=== PATIENT | male | born 1955 | race Caucasian/White ===

== ENCOUNTER 2023-05-12 10:22 | Emergency (ER) | payer OTHER, MEDICARE, BC ==
[~2023-05-12] VITALS: Ht 172.7 cm; Wt 83.2 kg
[~2023-05-12 10:22] MED LIST: ASPI-1071 PO; ATOR20TA66 PO; CLOP75TA34 PO; LAMO150T6 PO; METO-395 PO; PANT40TA54 PO; TERB250T89 PO; ZONI100C87 PO
[2023-05-12 10:27] VITALS: TEMP 98.3
[2023-05-12] MEDS ORDERED: ondansetron/PF 4mg/2ml inj IV ONE (10:40)
[2023-05-12] MEDS ORDERED: morphine 4 MG/ML inj SYRINge IV ONE (10:40)
[2023-05-12] MEDS ORDERED: normal saline 1000ml 1,000 ML IV ONE (10:40)
[2023-05-12 11:40] VITALS: BP 128/67; PULSE 52; RESP 13; O2SAT 98
[2023-05-12] MEDS ORDERED: HYDR-3965 PO (11:48)
== END 2023-05-12 12:32 | disposition home or self-care (01) ==
LOC: ER 10:22
DX: S20.212A Contusion of left front wall of thorax, initial encounter (principal); J45.909 Unspecified asthma, uncomplicated; Z79.82 Long term (current) use of aspirin; Z79.899 Other long term (current) drug therapy; W19.XXXA Unspecified fall, initial encounter; Y93.89 Activity, other specified; Y92.89 Other specified places as the place of occurrence of the external cause; Y99.8 Other external cause status
CPT/HCPCS: 71250; 96361; 96374; 96375; 99285; J2270; J2405; J7030

== ENCOUNTER 2024-05-11 19:35 | Observation (INO) | payer MEDICARE, BC ==
[~2024-05-11] VITALS: Ht 172.7 cm; Wt 90.5 kg
[2024-05-11 19:58] LABS: BASOPHILS # (AUTO) 0.1 X10'3 (0-0.2); EOSINOPHILS # (AUTO) 0.4 X10'3 (0-0.9); EOSINOPHILS % (AUTO) 4.6 % (0-6); HEMATOCRIT 40.1 % (42.0-52.0); HEMOGLOBIN 13.6 g/dl (14.0-17.9); LYMPHOCYTES # (AUTO) 2.4 X10'3 (1.1-4.8); LYMPHOCYTES % (AUTO) 30.4 % (21-51); MEAN CORPUSCULAR HEMOGLOBIN 32.3 PG (27.0-31.0); MEAN CORPUSCULAR HGB CONC 33.8 g/dL (33.0-36.5); MEAN CORPUSCULAR VOLUME 95.5 FL (78-98); MEAN PLATELET VOLUME 8.2 FL (7.4-10.4); MONOCYTES # (AUTO) 0.8 X10'3 (0-0.9); MONOCYTES % (AUTO) 10.2 % (2-12); NEUTROPHILS # (AUTO) 4.3 X10'3 (1.8-7.7); NEUTROPHILS % (AUTO) 53.8 % (42-75); PLATELET COUNT 197 X10'3 (140-440); RED CELL DISTRIBUTION WIDTH 13.4 % (11.5-14.5)
[2024-05-11 20:24] LABS: ALBUMIN 3.8 G/DL (3.4-5.0); ANION GAP 13 (8-16); BLOOD UREA NITROGEN 13 MG/DL (7-18); CALCIUM 8.9 MG/DL (8.5-10.1); CHLORIDE 109 MMOL/L (99-107); CREATININE 1.08 MG/DL (0.60-1.10); GLUCOSE 80 MG/DL (70-104); PRO BRAIN NATRIURETIC PEPTIDE 264 PG/ML (0-125); SODIUM 144 MMOL/L (135-145); eCRCL 65 ML/MIN; eGFR 68 ML/MIN
[2024-05-11 20:30] LABS: POTASSIUM 2.9 MMOL/L (3.5-5.1)
[2024-05-11 20:52] LABS: APTT 29 SECONDS (22-32); PROTHROMBIN TIME 10.7 SECONDS (9.0-12.0)
[2024-05-11 21:00] LABS: ETHANOL 35 MG/DL (<10); MAGNESIUM 2.6 MG/DL (1.5-2.4)
[2024-05-11 21:05] LABS: URINE AMPHETAMINE SCREEN NEGATIVE (Neg); URINE BARBITUATE SCREEN NEGATIVE (Neg); URINE BENZODIAZEPINES SCREEN NEGATIVE (Neg); URINE CANNABINOID SCREEN NEGATIVE (Neg); URINE COCAINE SCREEN NEGATIVE (Neg); URINE METHADONE SCREEN NEGATIVE (Neg); URINE OPIATE SCREEN NEGATIVE (Neg); URINE PHENCYCLIDINE SCREEN NEGATIVE (Neg)
[2024-05-11] MEDS: normal saline 1000ml 1,000 ML IV SCH (23:24)
[2024-05-11] MEDS: potassium Cl 20 mEq SR tablet PO ONE (23:24)
[2024-05-11] MEDS: potassium Cl 40MEQ/1/2NS 520ml 520 ML IV ONE (23:24)
[2024-05-11] MEDS ORDERED: METO-539 PO (23:56)
[2024-05-11] MEDS ORDERED: ATOR40TA PO (23:56)
[2024-05-11] MEDS ORDERED: ASPI-1265 PO (23:56)
[2024-05-12] VITALS (11 sets, daily range): BP systolic 137–159; BP diastolic 70–82; PULSE 50–86; RESP 14–19; TEMP 98–98.4; O2SAT 96–98
[2024-05-12] MEDS ORDERED: magnesium sulf-water 2g/50mL 50 ML IV PRN
[2024-05-12] MEDS ORDERED: magnesium Cl slow-release 64mg tablet PO PRN
[2024-05-12] MEDS ORDERED: PERFLUTREN PROTEIN-A MICROSPHR (Optison) 0.22 MG/ML 3ML VIAL IV PRN
[2024-05-12] MEDS ORDERED: potassium Cl 20 mEq SR tablet PO PRN ×2
[2024-05-12] MEDS ORDERED: ondansetron/PF 4mg/2ml inj IV PRN
[2024-05-12] MEDS ORDERED: magnesium sulf-water 4G/100mL 100 ML IV PRN
[2024-05-12] MEDS ORDERED: mag hydrox/Alum hydrox/simeth 30ml oral suspension PO PRN
[2024-05-12] MEDS ORDERED: magnesium hydroxide 30ml (MOM) UD suspension PO PRN
[2024-05-12] MEDS ORDERED: acetaminophen 325mg tablet PO PRN
[2024-05-12] MEDS ORDERED: metoprolol tartrate 1mg/ml inj IV PRN (00:35)
[2024-05-12] MEDS ORDERED: nitroGLYCERIN 0.4mg SUBLingual tab SL PRN (00:35)
[2024-05-12] MEDS: enoxaparin 30mg/0.3ml syringe SQ SCH (03:41)
[2024-05-12] MEDS: enoxaparin 60mg/0.6ml syringe SQ SCH (03:41)
[2024-05-12] MEDS: potassium Cl 40MEQ/1/2NS 520ml 520 ML IV PRN (05:55)
[2024-05-12 07:04] LABS: BASOPHILS # (AUTO) 0.1 X10'3 (0-0.2); BASOPHILS % (AUTO) 0.8 % (0-1); EOSINOPHILS # (AUTO) 0.4 X10'3 (0-0.9); EOSINOPHILS % (AUTO) 5.9 % (0-6); HEMATOCRIT 38.6 % (42.0-52.0); HEMOGLOBIN 13.3 g/dl (14.0-17.9); LYMPHOCYTES # (AUTO) 1.6 X10'3 (1.1-4.8); LYMPHOCYTES % (AUTO) 23.4 % (21-51); MEAN CORPUSCULAR HEMOGLOBIN 32.9 PG (27.0-31.0); MEAN CORPUSCULAR HGB CONC 34.4 g/dL (33.0-36.5); MEAN CORPUSCULAR VOLUME 95.6 FL (78-98); MEAN PLATELET VOLUME 8.4 FL (7.4-10.4); MONOCYTES # (AUTO) 0.5 X10'3 (0-0.9); MONOCYTES % (AUTO) 7.6 % (2-12); NEUTROPHILS # (AUTO) 4.3 X10'3 (1.8-7.7); NEUTROPHILS % (AUTO) 62.3 % (42-75); PLATELET COUNT 183 X10'3 (140-440); RED BLOOD COUNT 4.04 X10'6 (4.70-6.10); RED CELL DISTRIBUTION WIDTH 13.8 % (11.5-14.5); WHITE BLOOD COUNT 6.9 X10'3 (4.5-11.0)
[2024-05-12 07:31] LABS: ALANINE AMINOTRANSFERASE 26 U/L (12-78); ALBUMIN 3.4 G/DL (3.4-5.0); ALBUMIN/GLOBULIN RATIO 0.9 (1.1-1.5); ALKALINE PHOSPHATASE 117 IU/L (46-116); ANION GAP 6 (8-16); ASPARTATE AMINO TRANSFERASE 17 U/L (10-37); BILIRUBIN,TOTAL 0.3 MG/DL (0.1-1.0); BLOOD UREA NITROGEN 11 MG/DL (7-18); BUN/CREATININE RATIO 10.7 (10.0-20.0); CALCIUM 8.6 MG/DL (8.5-10.1); CHLORIDE 114 MMOL/L (99-107); CREATININE 1.03 MG/DL (0.60-1.10); GLUCOSE 106 MG/DL (70-104); MAGNESIUM 2.4 MG/DL (1.5-2.4); POTASSIUM 4.1 MMOL/L (3.5-5.1); SODIUM 144 MMOL/L (135-145); eCRCL 68 ML/MIN; eGFR 72 ML/MIN
[2024-05-12] MEDS: aspirin 81mg tab.chew PO SCH (07:47)
[2024-05-12] MEDS: lamoTRIgine 100mg tablet PO SCH (07:47)
[2024-05-12] MEDS: zonisamide 100mg capsule PO SCH (07:47)
[2024-05-12] MEDS: pantoprazole 40mg Tablet.DR PO SCH (07:47)
[2024-05-12] MEDS: docusate sod 100mg capsule PO SCH (07:48)
[2024-05-12] MEDS: atorvastatin 20mg tablet PO SCH (07:48)
[2024-05-12] MEDS: metoprolol succinate 25mg (24-HOUR) SR. Tablet PO SCH (07:48)
[2024-05-12] MEDS ORDERED: K and/or MAG REPLACEMENT MC SCH (08:00)
[2024-05-12] MEDS: regadenoson 0.4mg/5ml syringe IV PRN (11:16)
[2024-05-12] MEDS: aminophylline 250mg/10ml inj. IV PRN (11:25)
[2024-05-12 11:39] LABS: CHOL/HDL RATIO 2.6 (0.00-4.99); CHOLESTEROL 132 MG/DL (0-200); HDL CHOLESTEROL 50 MG/DL (35-60); LDL CHOLESTEROL 75 MG/DL (50-100); TRIGLYCERIDES 112 MG/DL (20-135)
[2024-05-12] MEDS ORDERED: DOCU100C40 PO (15:36)
[2024-05-12] MEDS ORDERED: zonisamide 100mg capsule PO SCH (21:00)
== END 2024-05-12 17:00 | disposition home or self-care (01) ==
LOC: ER 19:36 → ED HOLD 05-12 00:19 → PCU 3S 05-12 01:17
PROVIDERS: ADMIT Surgery; ATTEND Family Medicine
DX: I48.92 Unspecified atrial flutter (principal); Z20.822 Contact with and (suspected) exposure to COVID-19; I25.10 Atherosclerotic heart disease of native coronary artery without angina pectoris; E87.6 Hypokalemia; I10 Essential (primary) hypertension; E78.5 Hyperlipidemia, unspecified; G40.909 Epilepsy, unspecified, not intractable, without status epilepticus; J45.909 Unspecified asthma, uncomplicated; I25.2 Old myocardial infarction; Z95.5 Presence of coronary angioplasty implant and graft; Z79.899 Other long term (current) drug therapy
CPT/HCPCS: 78452; 80048; 80053; 80061; 80305; 83735; 83880; 84484; 85610; 85730; 87811; 93005; 93017; 96361; 96365; 96366; 96372; 99285; A9500; G0378; J1650; 36415; 71045; 80320; 85025; 87081; 93306; J2785; J3480; J7030

== ENCOUNTER 2024-09-26 18:19 | Emergency (ER) | payer MEDICARE, BC ==
[~2024-09-26] VITALS: Ht 175.3 cm; Wt 92.0 kg
[~2024-09-26 18:19] MED LIST changes: -ASPI-1071 PO; +ASPI-1265 PO; -ATOR20TA66 PO; +ATOR40TA PO; -CLOP75TA34 PO; +DOCU100C40 PO; -METO-395 PO; +METO-539 PO; -TERB250T89 PO
[2024-09-26 18:50] LABS: BASOPHILS % (AUTO) 0.2 % (0-1); EOSINOPHILS # (AUTO) 0.1 X10'3 (0-0.9); EOSINOPHILS % (AUTO) 0.4 % (0-6); HEMOGLOBIN 15.1 g/dl (14.0-17.9); LYMPHOCYTES # (AUTO) 0.9 X10'3 (1.1-4.8); LYMPHOCYTES % (AUTO) 6.2 % (21-51); MEAN CORPUSCULAR HEMOGLOBIN 31.9 PG (27.0-31.0); MEAN CORPUSCULAR HGB CONC 33.7 g/dL (33.0-36.5); MEAN CORPUSCULAR VOLUME 94.7 FL (78-98); MEAN PLATELET VOLUME 8.8 FL (7.4-10.4); MONOCYTES # (AUTO) 0.8 X10'3 (0-0.9); NEUTROPHILS # (AUTO) 12.3 X10'3 (1.8-7.7); NEUTROPHILS % (AUTO) 87.2 % (42-75); PLATELET COUNT 224 X10'3 (140-440); RED BLOOD COUNT 4.75 X10'6 (4.70-6.10); RED CELL DISTRIBUTION WIDTH 13.5 % (11.5-14.5); WHITE BLOOD COUNT 14.1 X10'3 (4.5-11.0)
[2024-09-26] MEDS: oxyCODONE/APAP 5-325mg tablet PO ONE (19:01)
[2024-09-26 19:10] LABS: ALBUMIN 4.3 G/DL (3.4-5.0); ANION GAP 11 (8-16); BLOOD UREA NITROGEN 26 MG/DL (7-18); BUN/CREATININE RATIO 15.6 (10.0-20.0); CALCIUM 9.7 MG/DL (8.5-10.1); CHLORIDE 107 MMOL/L (99-107); CREATININE 1.67 MG/DL (0.60-1.10); GLUCOSE 104 MG/DL (70-104); POTASSIUM 4.2 MMOL/L (3.5-5.1); SODIUM 141 MMOL/L (135-145); TOTAL CARBON DIOXIDE 22.7 MMOL/L (24-32); eCRCL 43 ML/MIN; eGFR 41 ML/MIN
[2024-09-26] MEDS: ketorolac trometh 15mg/ml vial 15 MG/ML ML IV ONE (19:23)
[2024-09-26] MEDS: TETanus/Pertussis (Acell)/Diphther VAC/PF (Tdap-Adult) 0.5ml syringe IMVAC ONE (19:24)
[2024-09-26] MEDS: normal saline 1000ML IV soln IVB ONE (19:28)
[2024-09-26] MEDS: LIDOcaine 1% W/epiNEPHrine 1:100,000 20ml vial IJ ONE (19:55)
[2024-09-26] MEDS: LIDOcaine 1% 30ml preserv. free vial TOP ONE (20:35)
[2024-09-26] MEDS: morphine 4 MG/ML inj SYRINge IV ONE ×2 (20:42→20:59)
[2024-09-26] MEDS: morphine 4 MG/ML inj SYRINge IV STA (22:46)
[2024-09-26] MEDS: ceFAZolin/D5W- 1GM premix 50 ML IV STA (23:16)
[2024-09-26] MEDS ORDERED: CEPH-585 PO (23:32)
[2024-09-26] MEDS ORDERED: OXYC-134 PO (23:32)
[2024-09-27] MEDS: morphine 4 MG/ML inj SYRINge IV ONE (03:10)
[2024-09-27 05:34] VITALS: BP 160/84; PULSE 67; TEMP 98.1; O2SAT 100
[2024-09-27 05:47] VITALS: RESP 15
[2024-09-27] MEDS: oxyCODONE/APAP 5-325mg tablet PO ONE (05:47)
== END 2024-09-27 06:36 | disposition home or self-care (01) ==
LOC: ER 18:19
DX: S02.81XA Fracture of other specified skull and facial bones, right side, initial encounter for closed fracture (principal); S22.088A Other fracture of T11-T12 vertebra, initial encounter for closed fracture; S09.8XXA Other specified injuries of head, initial encounter; I25.2 Old myocardial infarction; J45.909 Unspecified asthma, uncomplicated; I25.10 Atherosclerotic heart disease of native coronary artery without angina pectoris; Z79.82 Long term (current) use of aspirin; Z79.899 Other long term (current) drug therapy; Z72.89 Other problems related to lifestyle; W01.0XXA Fall on same level from slipping, tripping and stumbling without subsequent striking against object, initial encounter; Y93.01 Activity, walking, marching and hiking; Y92.89 Other specified places as the place of occurrence of the external cause; Y99.8 Other external cause status
CPT/HCPCS: 12011; 12032; 12053; 36415; 70450; 72125; 72131; 73020; 73610; 80048; 85025; 90715; 96361; 96365; 96375; 96376; 99285; A6402; A6446; A6449; G0008; J0690; J1885; J2270; J7030; Z7610; 12002; 12015; 90471